=== PATIENT | female | born 1965 | race Caucasian/White ===

== ENCOUNTER 2018-01-15 14:00 | Outpatient (RCR) | payer OTHER, SELFPAY ==
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
--- NOTE | 2018-01-15 14:50 | HP.SP.DC_ITS ---
ST Discharge Summary - Discharged: Discharge: Shena Worley is discharged from outpatient speech-language therapy effective 01/15/2018. 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 Shena is able to demonstrate her exercises effectively and independently and, per patient report, recent stroboscopy reveals mobility of the paralyzed fold with her voice approaching baseline. It is recommended that Shena continue her exercises 4x/day until her voice is consistently WNL. The patient was educated on how to reconsult with this CIRCULATION MANAGER in the future with questions and concerns. Please reconsult as necessary.
== END 2018-01-15 19:00 | disposition home or self-care (01) ==
LOC: SP 14:00
PROVIDERS: Family Provider Family Medicine; PCP Family Medicine; Visit Provider Otolaryngology Otolaryngology/Facial Plastic Surgery
DX: R49.0 Dysphonia (principal)
CPT/HCPCS: 92507; 92524

== ENCOUNTER → 2025-09-26 | Outpatient (CLI) | payer OTHER, SELFPAY ==
--- NOTE | 2025-09-26 13:07 | VDLE_ITS ---
Reason For Study Reason For Study: LLE PAin RIGHT LEFT CFV is compressible, spontaneous, phasic, competent GSV is normal. and demonstrates normal augmentation. CFV is compressible, spontaneous, phasic, competent, Procedure and demonstrates normal augmentation. This is a venous duplex using B-mode, color flow and FV is compressible, spontaneous, phasic, competent spectral Doppler. and demonstrates normal augmentation. Exam performed in department. POP V is compressible, spontaneous, phasic, competent The exam was diagnostic. and demonstrates normal augmentation. A preliminary report was called and/or faxed to [facility] T/P Trunk is compressible. [place] office. PTV is compressible. LT PerV is compressible. Nonvascularized anechoic areas noted throughout proximal medial calf muscle tissue. VL/Venous Duplex US, Unilateral Interpretation Summary Deep veins of the left lower extremity are patent and compressible segmentally. There is no evidence of left lower extremity deep vein thrombosis. The left great saphenous vein appears patent an d compressible segmentally. Nonvascularized anechoic areas noted throughout proximal medial calf muscle tis abbe. Ordering Physician: Renzo Schreiber Referring Physician: Ryan Carson Performed By: Florentino Loredo, DOM
== END | disposition home or self-care (01) ==
LOC: CVS 13:00
PROVIDERS: PCP Family Medicine; Referring Provider Student in an Organized Health Care Education/Training Program; Visit Provider Student in an Organized Health Care Education/Training Program
DX: M79.662 Pain in left lower leg (principal)
CPT/HCPCS: 93971